=== PATIENT | male | born 1980 | race Caucasian/White ===

== ENCOUNTER 2016-03-22 11:30 | Emergency (ER) | payer OTHER, SELFPAY ==
[2016-03-22] MEDS ORDERED: HYDROcodone/Acetaminophen 10/325 mg Tablet ONE (12:23)
[2016-03-22] MEDS ORDERED: Naproxen 500 MG TAB ONE (12:23)
--- NOTE | 2016-03-22 12:39 | ERRECORD ---
[facility] EMERGENCY RECORD HPI TRAUMA (12:36 LLDO) CHIEF COMPLAINT: Patient presents for evaluation of pain, Patient presents for evaluation of swelling, Patient presents for evaluation of tenderness, Patient presents for evaluation of see triage note. proximal left medial-dorsal forearm. kicked by a bull yesterday. HISTORIAN: History provided by patient, History provided by patient's spouse. MECHANISM OF INJURY: Mechanism of injury: Blunt trauma, Mechanism of injury: Sport or activity, No alcohol use associated with this incident, No drug use associated with this incident, No domestic violence associated with this incident. LOCATION: Symptoms are localized. QUALITY: Pain is dull in nature. SEVERITY: Maximum severity of symptoms moderate, Currently symptoms are moderate. TIME COURSE: Sudden onset of symptoms, There has been no change in the patient's symptoms over time, are constant. ASSOCIATED WITH: No associated abrasion(s), Associated with contusion(s), No associated laceration(s), No associated deformity. RELIEVED BY: Patient's condition relieved by rest. RISK FACTORS: No risk factors for spinal injury, No risk factors for intracranial bleed. ROS CONSTITUTIONAL: Negative constitutional review of systems. (12:44 LLDO) EYES: Negative eye review of systems, Historian denies eye pain, denies eye redness, denies eye discharge. (12:51 LLDO) ENT: Negative ears, nose, throat review of systems, Historian denies otalgia, denies rhinorrhea, denies sinus pain, denies sore throat. (12:51 LLDO) MUSCULOSKELETAL: Historian denies back pain, denies deformity, denies fall, reports injury, reports myalgias. ONLY IN HPI. (12:44 LLDO) NEUROLOGIC: Negative neurologic review of systems, Historian denies confusion, denies focal weakness, denies mental status changes, denies sensory changes. (12:51 LLDO) ALLERGIC/IMMUNOLOGIC: Normal allergy/immunologic system review, Historian denies eczema, denies environmental allergies, denies food allergies. (12:51 LLDO) PSYCHIATRIC: Negative psychiatric review of systems, Historian denies alcohol abuse, denies anxiety, denies depression, denies drug abuse, denies hallucinations. (12:51 LLDO) NOTES: All systems reviewed, negative except as described above. (12:44 LLDO) PAST MEDICAL HISTORY MEDICAL HISTORY: No past medical history. (11:46 SCHI) MALE SURGICAL HISTORY: Patient has no surgical history. (11:46 SCHI) &a-1R&a+25V*p+0X*x6829H*c202B*c15G*c2P*p-0X&a-25V&a+1R Name: Ammon Roa : 1980 M35 MedRec: [id number] AcctNum: [id number] Prepared: Olena Mar 22, 2016 12:57 by Interface Page 1 of 3 pMD [facility] EMERGENCY RECORD SOCIAL HISTORY: Patient denies alcohol use, Patient denies drug use, Patient has no smoking history. (11:46 SCHI) NOTES: Nursing records reviewed, Agree with nursing records, Medication list reviewed. (12:50 LLDO) KNOWN ALLERGIES No Known Drug Allergies CURRENT MEDICATIONS No recorded medications VITAL SIGNS (11:39 SCHI) VITAL SIGNS: BP: 110/69, Pulse: 60, Resp: 18, Temp: 97.5 (Tympanic), Pain: 4 (Constant), O2 sat: 96 on Room Air, Time: 03/22/2016 11:39. PHYSICAL EXAM CONSTITUTIONAL: Vital signs reviewed, Patient afebrile, Pulse normal, Blood pressure normal, Respiratory rate normal, Patient appears non toxic, Patient appears in pain, in mild pain distress, Patient alert and oriented to person, place and time. (12:49 LLDO) HEAD: Head exam normal, Head exam included findings of head atraumatic, normocephalic. (12:51 LLDO) EYES: Eye exam normal, Eye exam included findings of eyelids normal to inspection, Pupils equally round and reactive to light, Extraocular muscles intact. (12:51 LLDO) ENT: ENT exam normal, Ear exam normal, Nose exam normal. (12:51 LLDO) NECK: Neck exam normal, Neck exam included findings of normal range of motion, Trachea midline, no meningeal signs, no tenderness. (12:51 LLDO) BACK: Back exam normal, Back exam included findings of normal inspection, range of motion normal. (12:51 LLDO) UPPER EXTREMITY: Upper extremity exam included findings of inspection abnormal, contusions present, Range of motion normal, Motor strength normal, Sensation intact, Brachial pulse normal, Radial pulse normal. (12:49 LLDO) LOWER EXTREMITY: Lower extremity exam normal, Lower extremity exam included findings of inspection normal, Range of motion normal. (12:51 LLDO) NEURO: Neuro exam normal, Neuro exam findings include patient oriented to person, place and time, Speech normal, Donna coma scale 15. (12:51 LLDO) SKIN: Skin exam normal, Skin exam included findings of skin warm, dry, and normal in color, no rash. (12:51 LLDO) PSYCHIATRIC: Psychiatric exam normal, Psychiatric exam included findings of patient oriented to person place and time, Normal affect, Judgment normal. (12:51 LLDO) &a-1R&a+25V*p+0X*c4137O*c202B*c15G*c2P*p-0X&a-25V&a+1R Name: Ammon Roa : 1980 M35 MedRec: [id number] AcctNum: [id number] Prepared: Olena Mar 22, 2016 12:57 by Interface Page 2 of 3 pMD [facility] EMERGENCY RECORD MEDICATION ADMINISTRATION SUMMARY Drug Name: [place], Dose Ordered: 10-325 mg, Route: Oral, Status: Given, Time: 12:22 03/22/2016, Drug Name: Naprosyn, Dose Ordered: 500 mg, Route: Oral, Status: Given, Time: 12:22 03/22/2016, Detailed record available in Medication Service section. PROBLEM LIST No recorded problems DIAGNOSIS (12:18 LLDO) FINAL: PRIMARY: Forearm contusion. PRESCRIPTION (12:18 LLDO) Tylenol-Codeine #3: TABLET : 300 mg-30 mg : ORAL : Quantity: 1-2 Unit: tab(s) Route: ORAL Schedule: every 4 hours prn Dispense: 15 Unit: tab(s) May substitute. Refills: No Refills . NOTES: No Refills. DISPOSITION PATIENT: Disposition Type: Discharge, Disposition: *Discharge Home. (12:18 LLDO) Patient left the department. (12:30 SCHI) Thao: LLDO=MD Dom, Lm SCHI=TAMIKO Rice, Thais &a-1R&a+25V*p+0X*d5752R*c202B*c15G*c2P*p-0X&a-25V&a+1R Name: Crispin Ammon Lu : 1980 M35 MedRec: [id number] AcctNum: [id number] Prepared: Olena Mar 22, 2016 12:57 by Interface Page 3 of 3 pMD MTDD
--- NOTE | 2016-03-22 12:46 | PICIS ---
[facility] EMERGENCY RECORD TRIAGE (11:40 SCHI) TRIAGE NOTES: PAIN TO LEFT ELBOW. (11:40 SCHI) PATIENT: NAME: Ammon Roa, AGE: 35, GENDER: male, : Mon 1980, TIME OF GREET: Sun Mar 22, 2016 11:30, PREFERRED LANGUAGE: British, ETHNICITY: Not or , ECODE BILLING MAP: [facility], SSN: [id number], Zip Code: [address], KG WEIGHT: 95.25, PHONE: , , , PERSON ID: [id number], PCP: NONE. (11:40 SCHI) COMPLAINT: BULL KICKED PT IN L ARM. (11:40 SCHI) ADMISSION: URGENCY: 4 Non Urgent, ADMISSION SOURCE: Home, TRANSPORT: Walk-in, BED: ED -03. (11:40 SCHI) ASSESSMENT: Assessment: ALERT AND ORIENTED X 4, SKIN WARM AND DRY RESP EVEN AND UNLABORED,, Symptoms began YESTERDAY MORNING. (11:46 SCHI) PAIN: Patient complains of pain described as, aching, on a scale 0-10 patient rates pain as 4, Location LEFT FOREARM, Pain is constant. (11:46 SCHI) TRIAGE SCREENING: Patient denies suicidal ideation, Patient denies presence of domestic violence. (11:46 SCHI) PROVIDERS: TRIAGE NURSE: Thais Rice RN. (11:40 SCHI) VITAL SIGNS: BP 110/69, Pulse 60, Resp 18, Temp 97.5, (Tympanic), Pain 4, (Constant), O2 Sat 96, on Room Air, Time 03/22/2016 11:39. (11:39 SCHI) KNOWN ALLERGIES No Known Drug Allergies CURRENT MEDICATIONS No recorded medications VITAL SIGNS (11:39 SCHI) VITAL SIGNS: BP: 110/69, Pulse: 60, Resp: 18, Temp: 97.5 (Tympanic), Pain: 4 (Constant), O2 sat: 96 on Room Air, Time: 03/22/2016 11:39. NURSING ASSESSMENT: EXTREMITY UPPER (11:51 SCHI) CONSTITUTIONAL: Patient arrives ambulatory, Gait steady, History obtained from patient, Patient appears comfortable, Patient cooperative, Patient alert, Oriented to person, place and time, Skin warm, Skin dry, Skin normal in color, Mucous membranes pink, Mucous membranes moist, Patient is well-groomed, Patient complains of BULL KICKED HIM IN THE ARM YESTERDAY, HAS SOME BRUISING. PAIN: aching pain, to the left elbow, to the left forearm, on a scale 0-10 patient rates pain as 4. LEFT UPPER EXTREMITY: Left upper extremity assessment findings include capillary refill less than 2 seconds, Skin color normal to hand, Skin temperature to hand warm, Distal sensation intact, Muscle tone normal, muscle strength 5, Inspection findings include &a-1R&a+25V*p+0X*e9835Y*c202B*c15G*c2P*p-0X&a-25V&a+1R Name: Ammon Roa : 1980 M35 MedRec: [id number] AcctNum: [id number] Prepared: Olena Mar 22, 2016 13:04 by Interface Page 1 of 5 pMD [facility] EMERGENCY RECORD contusion, to LEFT FOREARM JUST POSTERIOR AND BELOW ELBOW, Inspection findings include no deformity, Notes: HURTS TO ROTATE WRIST. RIGHT UPPER EXTREMITY: Right upper extremity assessment findings include capillary refill less than 2 seconds, Skin color normal to hand, Skin temperature to hand warm, Distal sensation intact, Muscle tone normal. NOTES: Patient tolerated procedure well. NURSING PROCEDURE: BEDSIDE RADIOLOGY (11:53 SCHI) PATIENT IDENTIFIER: Patient's identity verified by hospital ID bracelet, Patient's identity verified by family member. BEDSIDE RADIOLOGY: Portable x-ray performed, of the left forearm. NURSING PROCEDURE: DISCHARGE NOTE (12:26 SCHI) DISCHARGE: Patient discharged to home, ambulating without assistance, family driving, accompanied by other family member, Summary of Care printed/ provided, Patient requested and was provided an electronic copy of Discharge Instructions, Transition record given to patient, Discharge instructions given to patient, Simple or moderate discharge teaching performed, Prescriptions given and instructions on side effects given, Medication reconciliation form given, Above person(s) verbalized understanding of discharge instructions and follow-up care, Patient treated and evaluated by physician. BELONGINGS: Belongings and valuables with patient at time of discharge include:, Belongings remain with patient, Valuables remain with patient. SAFETY: Side rails up, Cart/Stretcher in lowest position, Family at bedside, Hospital ID band on. ORDER DETAILS Order Name: XR Forearm Lt 2 View STANDARD, Status: Active, Time: 11:43 03/22/2016, User: JUSTIN, - Ordered for: MD Fernandes Lloyd, - Entered by: MD Fernandes Lloyd - Olena Mar 22, 2016 11:43, - Quantity: 1. MEDICATION ADMINISTRATION SUMMARY Drug Name: [place], Dose Ordered: 10-325 mg, Route: Oral, Status: Given, Time: 12:22 03/22/2016, Drug Name: Naprosyn, Dose Ordered: 500 mg, Route: Oral, Status: Given, Time: 12:22 03/22/2016, Detailed record available in Medication Service section. MEDICATION SERVICE (12:22 LLDO) Naprosyn: Order: Naprosyn (naproxen) - Dose: 500 mg : Oral &a-1R&a+25V*p+0X*y7585S*c202B*c15G*c2P*p-0X&a-25V&a+1R Name: Ammon Roa : 1980 M35 MedRec: [id number] AcctNum: [id number] Prepared: Olena Mar 22, 2016 13:04 by Interface Page 2 of 5 pMD [facility] EMERGENCY RECORD Schedule: Now Ordered by: Lm Fernandes MD Entered by: MD Olena Smalls Mar 22, 2016 12:17 Documented as given by: TAMIKO Campoverde Mar 22, 2016 12:22 Patient, Medication, Dose, Route and Time verified prior to administration. Site: Medication administered P.O., Correct patient, time, route, dose and medication confirmed prior to administration, Patient advised of actions and side-effects prior to administration, Allergies confirmed and medications reviewed prior to administration. [place]: Order: [place] (hydrocodone bitartrate/acetaminophen) - Dose: 10-325 mg : Oral Schedule: Now Ordered by: Lm Fernandes MD Entered by: MD Olena Smalls Mar 22, 2016 12:17 Documented as given by: TAMIKO Campoverde Mar 22, 2016 12:22 Patient, Medication, Dose, Route and Time verified prior to administration. Site: Medication administered P.O., Correct patient, time, route, dose and medication confirmed prior to administration, Patient advised of actions and side-effects prior to administration, Allergies confirmed and medications reviewed prior to administration. HPI TRAUMA (12:36 LLDO) CHIEF COMPLAINT: Patient presents for evaluation of pain, Patient presents for evaluation of swelling, Patient presents for evaluation of tenderness, Patient presents for evaluation of see triage note. proximal left medial-dorsal forearm. kicked by a bull yesterday. HISTORIAN: History provided by patient, History provided by patient's spouse. MECHANISM OF INJURY: Mechanism of injury: Blunt trauma, Mechanism of injury: Sport or activity, No alcohol use associated with this incident, No drug use associated with this incident, No domestic violence associated with this incident. LOCATION: Symptoms are localized. QUALITY: Pain is dull in nature. SEVERITY: Maximum severity of symptoms moderate, Currently symptoms are moderate. TIME COURSE: Sudden onset of symptoms, There has been no change in the patient's symptoms over time, are constant. ASSOCIATED WITH: No associated abrasion(s), Associated with contusion(s), No associated laceration(s), No associated deformity. RELIEVED BY: Patient's condition relieved by rest. RISK FACTORS: No risk factors for spinal injury, No risk factors for intracranial bleed. ROS CONSTITUTIONAL: Negative constitutional review of systems. (12:44 LLDO) EYES: Negative eye review of systems, Historian denies eye pain, &a-1R&a+25V*p+0X*q5387F*c202B*c15G*c2P*p-0X&a-25V&a+1R Name: Ammon Roa Tabitha : 1980 M35 MedRec: [id number] AcctNum: [id number] Prepared: Olena Mar 22, 2016 13:04 by Interface Page 3 of 5 pMD [facility] EMERGENCY RECORD denies eye redness, denies eye discharge. (12:51 LLDO) ENT: Negative ears, nose, throat review of systems, Historian denies otalgia, denies rhinorrhea, denies sinus pain, denies sore throat. (12:51 LLDO) MUSCULOSKELETAL: Historian denies back pain, denies deformity, denies fall, reports injury, reports myalgias. ONLY IN HPI. (12:44 LLDO) NEUROLOGIC: Negative neurologic review of systems, Historian denies confusion, denies focal weakness, denies mental status changes, denies sensory changes. (12:51 LLDO) ALLERGIC/IMMUNOLOGIC: Normal allergy/immunologic system review, Historian denies eczema, denies environmental allergies, denies food allergies. (12:51 LLDO) PSYCHIATRIC: Negative psychiatric review of systems, Historian denies alcohol abuse, denies anxiety, denies depression, denies drug abuse, denies hallucinations. (12:51 LLDO) NOTES: All systems reviewed, negative except as described above. (12:44 LLDO) PAST MEDICAL HISTORY MEDICAL HISTORY: No past medical history. (11:46 SCHI) MALE SURGICAL HISTORY: Patient has no surgical history. (11:46 SCHI) SOCIAL HISTORY: Patient denies alcohol use, Patient denies drug use, Patient has no smoking history. (11:46 SCHI) NOTES: Nursing records reviewed, Agree with nursing records, Medication list reviewed. (12:50 LLDO) PHYSICAL EXAM CONSTITUTIONAL: Vital signs reviewed, Patient afebrile, Pulse normal, Blood pressure normal, Respiratory rate normal, Patient appears non toxic, Patient appears in pain, in mild pain distress, Patient alert and oriented to person, place and time. (12:49 LLDO) HEAD: Head exam normal, Head exam included findings of head atraumatic, normocephalic. (12:51 LLDO) EYES: Eye exam normal, Eye exam included findings of eyelids normal to inspection, Pupils equally round and reactive to light, Extraocular muscles intact. (12:51 LLDO) ENT: ENT exam normal, Ear exam normal, Nose exam normal. (12:51 LLDO) NECK: Neck exam normal, Neck exam included findings of normal range of motion, Trachea midline, no meningeal signs, no tenderness. (12:51 LLDO) BACK: Back exam normal, Back exam included findings of normal inspection, range of motion normal. (12:51 LLDO) UPPER EXTREMITY: Upper extremity exam included findings of inspection abnormal, contusions present, Range of motion normal, Motor strength normal, Sensation intact, Brachial pulse normal, Radial pulse normal. (12:49 LLDO) &a-1R&a+25V*p+0X*m8392D*c202B*c15G*c2P*p-0X&a-25V&a+1R Name: Ammon Roa : 1980 M35 MedRec: [id number] AcctNum: [id number] Prepared: Olena Mar 22, 2016 13:04 by Interface Page 4 of 5 pMD [facility] EMERGENCY RECORD LOWER EXTREMITY: Lower extremity exam normal, Lower extremity exam included findings of inspection normal, Range of motion normal. (12:51 LLDO) NEURO: Neuro exam normal, Neuro exam findings include patient oriented to person, place and time, Speech normal, [place] coma scale 15. (12:51 LLDO) SKIN: Skin exam normal, Skin exam included findings of skin warm, dry, and normal in color, no rash. (12:51 LLDO) PSYCHIATRIC: Psychiatric exam normal, Psychiatric exam included findings of patient oriented to person place and time, Normal affect, Judgment normal. (12:51 LLDO) EVENTS TRANSFER: Triage to Emergency Main ED -03. (Olena Mar 22, 2016 11:40 SCHI) Removed from Emergency Main ED -03. (12:30 SCHI) PROBLEM LIST No recorded problems DIAGNOSIS (12:18 LLDO) FINAL: PRIMARY: Forearm contusion. DISPOSITION PATIENT: Disposition Type: Discharge, Disposition: *Discharge Home. (12:18 LLDO) Patient left the department. (12:30 SCHI) INSTRUCTION (12:19 LLDO) DISCHARGE: CONTUSION, UPPER EXTREMITY. FOLLOWUP: Follow up with Primary Care Physician in 10-14 days. SPECIAL: Follow-up with your PCP. PRESCRIPTION (12:18 LLDO) Tylenol-Codeine #3: TABLET : 300 mg-30 mg : ORAL : Quantity: 1-2 Unit: tab(s) Route: ORAL Schedule: every 4 hours prn Dispense: 15 Unit: tab(s) May substitute. Refills: No Refills . NOTES: No Refills. IMAGING (12:29 SCHI) *DISCHARGE INSTRUCTIONS RECEIPT: Image captured from scanner. *SUPPLY CHARGE SHEET: Image captured from scanner. ADMIN DIGITAL SIGNATURE: TAMIKO Rice, Thais. (12:29 SCHI) MD Fernandes Lloyd. (12:51 LLDO) MD Fernandes Lloyd. (12:51 LLDO) Thao: LLDO=MD Dom, Lm PEREZ=TAMIKO Rice, Slinda &a-1R&a+25V*p+0X*h8326A*c202B*c15G*c2P*p-0X&a-25V&a+1R Name: Ammon Roa : 1980 5 MedRec: [id number] AcctNum: [id number] Prepared: Olena Mar 22, 2016 13:04 by Interface Page 5 of 5 pMD [facility] MEDICATION RECONCILIATION You were seen in the Emergency Department on: Olena Mar 22, 2016 KNOWN ALLERGIES No Known Drug Allergies MEDICATIONS GIVEN WHILE IN THE EMERGENCY DEPARTMENT Naprosyn (naproxen) - Dose: 500 milligram(s) : Oral [place] (hydrocodone bitartrate/acetaminophen) - Dose: 10-325 milligram(s) : Oral Notes from the emergency department Reviewed with family Reviewed with patient PRESCRIPTIONS (1) &a-1R&a+25V*p+0X*v9433T*c202B*c15G*c2P*p-0X&a-25V&a+1R Name: Ammon Roa : 1980 M35 MedRec: [id number] AcctNum: [id number] Prepared: Olena Mar 22, 2016 13:04 by Interface pMD [email or web address]
--- NOTE | 2016-03-22 14:07 | RAD ---
LEFT FOREARM TWO VIEWS HISTORY: The patient was kicked by a bull. Post traumatic pain. COMPARISON: None. FINDINGS: Two views of the left forearm shows no fracture, no cortical irregularity, and no periosteal reactio n. IMPRESSION: No fracture. POS: RUBY
== END 2016-03-22 12:26 | disposition home or self-care (01) ==
LOC: MADERS 11:30
DX: S50.12XA Contusion of left forearm, initial encounter (principal); W55.22XA Struck by cow, initial encounter
CPT/HCPCS: 99283